=== PATIENT | female | born 2000 | race Caucasian/White ===

== ENCOUNTER 2024-04-05 16:35 | Emergency (ER) | payer OTHER ==
[~2024-04-05] VITALS: Ht 170.2 cm; Wt 87.8 kg
[2024-04-05 16:37] VITALS: BP 138/91; TEMP 96.9; O2SAT 99
== END 2024-04-05 20:19 | disposition left against medical advice (07) ==
LOC: M ED 16:35
DX: Z53.21 Procedure and treatment not carried out due to patient leaving prior to being seen by health care provider (principal)